=== PATIENT | male | born 1930 | race Caucasian/White ===

== ENCOUNTER 2018-05-31 15:09 | Inpatient (IN) | payer MEDICARE ==
[~2018-05-31] VITALS: Ht 162.6 cm; Wt 75.1 kg
[~2018-05-31 15:09] MED LIST: ASPIRIN E.C. 8181 MG PO; CALCIUM PO; COLACE 100100 MG/CAP PO; COZAAR 25MG25 MG/TAB PO; COZAAR 50MG50 MG/TAB PO; DULCOLAX S10 MG/SUPP RC; EX-LAX15 MG PO; EYE VITAMIN PO; GLIPIZIDE5 MG PO; JANUVIA 100MG100 MG PO; JANUVIA25 MG PO; LANTUS SOLOS100 U/ML SQ; LEVEMIR FLEX100 U/ML SQ; LEXAPRO20 MG PO; LISINOPRIL5 MG PO; MEGACE PO; MILK OF MA400 MG/52 PO; MIRALAX PA17 GM/Dose PO; MULTI VITAMINS1 TAB PO; NORCO 325 MG-51 TAB PO; NORVASC 5MG5 MG/TAB PO; NOVLOG SQ; NOVOLOG FLEX100 U/ML SQ; OYSCO 500500 M1 PO; PRILOSEC 20MG20 MG PO; PROSIGHT1 TAB PO; ROXICODONE 55 MG/TAB PO; SENOKOT S 50 MG1 TAB PO; TYLENOL 325MG325 MG PO; VITAMINC500CH PO; VTAMINC250TA PO; XARELTO10 MG PO; XARELTO20 MG PO; ZOCOR 40MG40 MG PO; ZOCOR40 MG PO
[2018-05-31 16:14] VITALS: BP 149/80; PULSE 104; TEMP 98.7
[2018-05-31] MEDS ORDERED: LANTUS SOLOS100 U/ML SQ (16:28)
[2018-05-31] MEDS ORDERED: CIPRO 250MG TA250 MG PO (16:28)
[2018-05-31] MEDS ORDERED: LYRICA 75MG CAP75 MG PO (16:29)
[2018-05-31] MEDS ORDERED: ROXICODONE 55 MG/TAB PO (16:31)
[2018-05-31] MEDS ORDERED: HUMALOGKP50/50 SQ (16:34)
[2018-05-31] MEDS ORDERED: TYLENOL 500MG500 MG PO (16:37)
[2018-05-31] MEDS ORDERED: FERROUS SU325 MG/TAB PO (16:40)
[2018-05-31 19:56] VITALS: BP 126/76; PULSE 113; TEMP 98.4
[2018-05-31 23:36] LABS: BASO # 0.1 (0.0-0.2); BASO % 0.5 % (0.0-2.0); EOS # 0.2 (0.0-0.7); EOS % 1.6 % (0-4.0); GRAN # 9.9 (1.4-6.5); GRAN % 77.7 % (42.2-75.2); HEMOGLOBIN 11.7 g/dl (13.5-18.0); LYMPH # 1.5 (1.2-3.4); LYMPH % 11.9 % (20.0-51.0); MEAN CELL VOLUME 91 fl (80.0-100.0); MEAN CORPUSCULAR HEMOGLOBIN 29 pg (27.0-31.0); MEAN CORPUSCULAR HGB CONC 33 g/dl (33.0-37.0); MEAN PLATELET VOLUME 10.4 fl (7.4-10.4); MONO % 7.6 % (1.7-9.3); PLATELET COUNT 233 K/mm3 (130-400); RED BLOOD COUNT 3.98 M/mm3 (4.20-5.60)
[2018-05-31 23:56] VITALS: BP 138/63; PULSE 105; TEMP 97.5
[2018-06-01 00:08] LABS: PROTHROMBIN TIME 11.6 SECONDS (9.7-12.8)
[2018-06-01 00:10] LABS: PARTIAL THROMBOPLASTIN TIME 32.6 SECONDS (26.0-37.0)
[2018-06-01 04:32] VITALS: BP 150/80; PULSE 102; TEMP 98.4
[2018-06-01 05:12] LABS: ARTERIAL BLD GAS O2 SATURATION 94.5 % (92-100); ARTERIAL BLD GAS TCO2 CT 23.6; ARTERIAL BLOOD GAS BASE EXCESS -1.2 (-2-2); ARTERIAL BLOOD GAS HCO3 22.5 meq/L (22-26); ARTERIAL BLOOD GAS PCO2 34.9 mmHg (35-45); ARTERIAL BLOOD GAS PO2 74.4 mmHg (80-100); ARTERIAL BLOOD GAS pH 7.43 (7.35-7.45)
[2018-06-01 06:53] LABS: HEMATOCRIT 35.7 % (42.0-52.0); HEMOGLOBIN 11.6 g/dl (13.5-18.0); MEAN CELL VOLUME 90 fl (80.0-100.0); MEAN CORPUSCULAR HEMOGLOBIN 29 pg (27.0-31.0); MEAN CORPUSCULAR HGB CONC 33 g/dl (33.0-37.0); MEAN PLATELET VOLUME 10.3 fl (7.4-10.4); PLATELET COUNT 249 K/mm3 (130-400); RED BLOOD COUNT 3.97 M/mm3 (4.20-5.60); REDCELL DISTRIBUTION WIDTH-CV 13.9 % (11.5-14.5)
[2018-06-01 07:02] LABS: ALBUMIN 3.1 gm/dL (3.5-5.0); BILIRUBIN,TOTAL 0.2 mg/dL (0.0-1.0); CALCIUM 9.4 mg/dL (8.4-10.2); CREATININE, serum 1.29 mg/dL (0.66-1.25); MAGNESIUM 1.8 mg/dL (1.6-2.3); POTASSIUM 3.6 mmol/L (3.4-5.0); TOTAL PROTEIN 6.3 gm/dL (6.4-8.2)
[2018-06-01 07:12] LABS: TROPONIN-I 0.027 ng/mL (0.000-0.034)
[2018-06-01 07:20] LABS: BAND 2 % (0-10); BASOPHIL 1 % (0-2); LYMPHOCYTE 14 % (20.0-51.0); NEUTROPHILS 79 % (42.0-75.2)
[2018-06-01 07:21] LABS: PLATELET ESTIMATE NORMAL (NORMAL); POLYCHROMASIA 1+
[2018-06-01 07:22] VITALS: BP 131/64; PULSE 109; TEMP 98.2
[2018-06-01 09:41] LABS: PARTIAL THROMBOPLASTIN TIME 45.8 SECONDS (26.0-37.0)
[2018-06-01 11:34] VITALS: BP 149/72; PULSE 101; TEMP 98.4
[2018-06-01 15:27] VITALS: BP 158/75; PULSE 106; TEMP 98.2
[2018-06-01 19:42] VITALS: BP 159/89; PULSE 99; TEMP 98.7
[2018-06-01 23:44] VITALS: BP 140/66; PULSE 100; TEMP 98.5
[2018-06-02 03:00] VITALS: BP 178/75; PULSE 107; TEMP 98.5
[2018-06-02 06:53] LABS: HEMOGLOBIN 11.2 g/dl (13.5-18.0); MEAN CELL VOLUME 91 fl (80.0-100.0); MEAN CORPUSCULAR HEMOGLOBIN 30 pg (27.0-31.0); MEAN CORPUSCULAR HGB CONC 33 g/dl (33.0-37.0); MEAN PLATELET VOLUME 10.4 fl (7.4-10.4); PLATELET COUNT 227 K/mm3 (130-400); RED BLOOD COUNT 3.75 M/mm3 (4.20-5.60); REDCELL DISTRIBUTION WIDTH-CV 14.3 % (11.5-14.5)
[2018-06-02 06:59] LABS: CREATININE, serum 1.19 mg/dL (0.66-1.25); HEMATOCRIT 34.2 % (42.0-52.0); POTASSIUM 3.4 mmol/L (3.4-5.0)
[2018-06-02 07:54] VITALS: BP 178/70; PULSE 110; TEMP 99.2
[2018-06-02 07:57] LABS: BAND 6 % (0-10); EOSINOPHIL 4 % (0-4); LYMPHOCYTE 13 % (20.0-51.0); NEUTROPHILS 70 % (42.0-75.2)
[2018-06-02 08:00] LABS: PLATELET ESTIMATE NORMAL (NORMAL)
[2018-06-02 12:34] VITALS: BP 146/72; PULSE 105; TEMP 99.2
[2018-06-02 16:04] VITALS: BP 151/69; PULSE 99; TEMP 99
[2018-06-02 19:45] VITALS: BP 150/71; PULSE 102; TEMP 99.2
[2018-06-02 23:45] VITALS: BP 146/68; PULSE 101; TEMP 98.7
[2018-06-03] VITALS (8 sets, daily range): BP systolic 121–163; BP diastolic 58–72; PULSE 94–106; TEMP 97.9–99.1
[2018-06-03 06:30] LABS: HEMOGLOBIN 11.8 g/dl (13.5-18.0); MEAN CELL VOLUME 91 fl (80.0-100.0); MEAN CORPUSCULAR HEMOGLOBIN 29 pg (27.0-31.0); MEAN CORPUSCULAR HGB CONC 32 g/dl (33.0-37.0); MEAN PLATELET VOLUME 10.3 fl (7.4-10.4); PLATELET COUNT 268 K/mm3 (130-400); RED BLOOD COUNT 4.04 M/mm3 (4.20-5.60); REDCELL DISTRIBUTION WIDTH-CV 14.1 % (11.5-14.5)
[2018-06-03 06:31] LABS: HEMATOCRIT 36.9 % (42.0-52.0)
[2018-06-03 06:44] LABS: ALBUMIN 3.2 gm/dL (3.5-5.0); BILIRUBIN,TOTAL 0.5 mg/dL (0.0-1.0); CALCIUM 8.1 mg/dL (8.4-10.2); CREATININE, serum 1.12 mg/dL (0.66-1.25); POTASSIUM 3.9 mmol/L (3.4-5.0); TOTAL PROTEIN 6.4 gm/dL (6.4-8.2)
[2018-06-03 07:10] LABS: BAND 6 % (0-10); EOSINOPHIL 1 % (0-4); LYMPHOCYTE 15 % (20.0-51.0); NEUTROPHILS 76 % (42.0-75.2); PLATELET ESTIMATE NORMAL (NORMAL)
[2018-06-04 00:19] VITALS: BP 166/81; PULSE 101; TEMP 98.2
[2018-06-04 05:01] VITALS: BP 169/81; PULSE 107; TEMP 98.1
[2018-06-04 06:55] LABS: BASO % 0.2 % (0.0-2.0); EOS # 0.3 (0.0-0.7); EOS % 1.8 % (0-4.0); GRAN # 11.3 (1.4-6.5); GRAN % 79.7 % (42.2-75.2); HEMOGLOBIN 11.4 g/dl (13.5-18.0); LYMPH # 1.4 (1.2-3.4); LYMPH % 9.7 % (20.0-51.0); MEAN CELL VOLUME 89 fl (80.0-100.0); MEAN CORPUSCULAR HEMOGLOBIN 30 pg (27.0-31.0); MEAN CORPUSCULAR HGB CONC 33 g/dl (33.0-37.0); MEAN PLATELET VOLUME 10.2 fl (7.4-10.4); MONO % 7.3 % (1.7-9.3); PLATELET COUNT 250 K/mm3 (130-400); RED BLOOD COUNT 3.86 M/mm3 (4.20-5.60); REDCELL DISTRIBUTION WIDTH-CV 14.1 % (11.5-14.5)
[2018-06-04 06:58] LABS: HEMATOCRIT 34.4 % (42.0-52.0)
[2018-06-04 07:07] LABS: CALCIUM 9.6 mg/dL (8.4-10.2); CREATININE, serum 1.24 mg/dL (0.66-1.25); POTASSIUM 3.4 mmol/L (3.4-5.0)
[2018-06-04 07:41] VITALS: BP 149/86; PULSE 108; TEMP 98
[2018-06-04 11:17] VITALS: BP 149/71; PULSE 103; TEMP 99.4
[2018-06-04 15:32] VITALS: BP 113/57; PULSE 93; TEMP 99.2
[2018-06-04 15:53] LABS: INR 1.1 (0.8-3.0); PROTHROMBIN TIME 12.3 SECONDS (9.7-12.8)
[2018-06-04 16:55] VITALS: BP 113/57; PULSE 93; TEMP 99.2
== END 2018-06-04 17:30 | disposition short-term general hospital (02) | DRG 374 ==
LOC: MEDICAL 15:09
PROVIDERS: Internal Medicine; Internal Medicine Gastroenterology; Physician Assistant
PROC: 0DB78ZX Excision of Stomach, Pylorus, Via Natural or Artificial Opening Endoscopic, Diagnostic (ICD-10-PCS; 2018-06-03)
PROC: 0DB68ZX Excision of Stomach, Via Natural or Artificial Opening Endoscopic, Diagnostic (ICD-10-PCS; 2018-06-03)
PROC: 0DB38ZX Excision of Lower Esophagus, Via Natural or Artificial Opening Endoscopic, Diagnostic (ICD-10-PCS; principal; 2018-06-03 09:30)
DX: C15.3 Malignant neoplasm of upper third of esophagus (principal); L89.213 Pressure ulcer of right hip, stage 3; N17.9 Acute kidney failure, unspecified; E87.3 Alkalosis; D38.1 Neoplasm of uncertain behavior of trachea, bronchus and lung; K31.7 Polyp of stomach and duodenum; I12.9 Hypertensive chronic kidney disease with stage 1 through stage 4 chronic kidney disease, or unspecified chronic kidney disease; E11.22 Type 2 diabetes mellitus with diabetic chronic kidney disease; N18.9 Chronic kidney disease, unspecified; E11.65 Type 2 diabetes mellitus with hyperglycemia; Z85.520 Personal history of malignant carcinoid tumor of kidney; Z85.46 Personal history of malignant neoplasm of prostate; Z79.4 Long term (current) use of insulin; Z87.891 Personal history of nicotine dependence; K22.2 Esophageal obstruction
CPT/HCPCS: 99222; 99223-AI; 99232-AI; 99233-AI; J1644; J1650; J1815; J2704; J7030; Q9967